=== PATIENT | female | born 1990 | race Caucasian/White ===

== ENCOUNTER 2016-12-16 12:01 | Emergency (ER) | payer BC ==
[2016-12-16 12:07] VITALS: TEMP 97.9
[2016-12-16] MEDS ORDERED: ONDANSETRON 4 MG/2 ML VIAL IVP ONE (12:14)
[2016-12-16] MEDS ORDERED: NS 1,000 ML IV ONE (12:14)
[2016-12-16] MEDS ORDERED: DIAZEPAM 10 MG/2 ML SYR IVP ONE (12:27)
[2016-12-16] MEDS ORDERED: FAMOTIDINE 20 MG/2 ML SDV IVP ONE (12:29)
[2016-12-16] MEDS ORDERED: HYOSCYAMINE SULFATE 0.125 MG TAB PO ONE (12:29)
--- NOTE | 2016-12-16 12:31 | EDPHY ---
H & P Stated Complaint: Had ECt yesterday;started n/v/d afterwards Source: Patient Exam Limitations: No limitations - Personal History LMP (Females 10-55): Extended Cycle BCP/Inj Current Tetanus Diphtheria and Acellular Pertussis (TDAP): Yes Tetanus Vaccine Date: 2010 - Medical/Surgical History Hx Asthma: No Hx Chronic Respiratory Disease: No Hx Diabetes: No Hx Cardiac Disease: No Hx Renal Disease: No Hx Cirrhosis: No Hx Alcoholism: No Hx HIV/AIDS: No Hx Splenectomy or Spleen Trauma: No Other PMH: PMHx: Depression and anxiety, migraines, overdose x2, cutting Hx as adolescent, ECT treatments. PSHx: back procedure 2014 - Family History Significant Family History: No pertinent family hx - Social History Smoking Status: Never smoked Alcohol Use: Rarely Drug Use: None Time Seen by Provider: 12/16/16 12:27 HPI/ROS: HPI: 26-year-old female presents to emergency department with chief concern nausea, vomiting, diarrhea that onset suddenly yesterday at 1:00 p.m., an hour after her ECT treatment. Reports onset of chills, myalgias, nausea, vomiting, and diarrhea. Last emesis 1 hour ago. Last diarrhea this morning. Denies fever, URI symptoms, shortness of breath, chest pain, focal abdominal pain, urinary symptoms, back or flank pain, rash. No recent travel. Did not eat out prior to onset of symptoms. No sick household contacts. No aggravating or alleviating factors. ROS:10 point review of systems is negative other than as stated in HPI (Pina Nieves) - Physical Exam Exam: Vital signs stable, reviewed by me General: Awake, alert, calm, cooperative. No acute distress. Head: Normalocephalic. Atraumatic. EENT: PERRLA. EOMI. No pallor or injection. Anicteric. No nystagmus. No injection. TMs intact bilaterally with normal landmarks. No rhinnorhea, nasal passages clear. Oropharynx without redness, exudates, or lesions. Tonsils 2+ bilaterally, no exudates. Neck: Supple, nontender. No lymphadenopathy. Full range of motion. No meningismus. Respiratory: Breathing unlabored. Breath sounds equal bilaterally and clear to auscultation. No adventitious sounds. CV: Chest nontender, atraumatic. Heart rate regular. No murmur, distal pulses 2+ bilaterally. Brisk cap refill all extremities. GI: Abdomen soft, generalized mild discomfort to deep palpation. No guarding. No focal tenderness. No rebound. Bowel sounds normoactive and positive x4 quadrants. : No CVA or flank tenderness. Neuro: Alert. Oriented x 3. Speech clear. Nonfocal cranial nerves throughout. Sensation intact all extremities. Skin: Skin warm, dry, intact. No rashes, abrasions, or lacerations. Skin turgor normal. Extremities: Full range of motion in all 4 extremities. Strength 5+ all extremities. (Pina Nieves K) Constitutional: Initial Vital Signs Temperature (C) 36.6 C 12/16/16 12:04 Heart Rate 92 12/16/16 12:04 Respiratory Rate 18 12/16/16 12:04 Blood Pressure 98/57 L 12/16/16 12:04 O2 Sat (%) 97 12/16/16 12:04 O2 Delivery Mode Room Air Allergies/Adverse Reactions: iodine Allergy (Severe, Verified 12/16/16 12:04) Anaphylaxis shellfish derived Allergy (Severe, Verified 12/16/16 12:04) Anaphylaxis lorazepam Allergy (Verified 12/16/16 12:04) Home Medications: Medication Instructions Recorded clonazePAM [KlonOPIN] 1 mg PO BID #40 tab 03/13/15 Bc Implant 03/20/16 Eszopiclone [Lunesta] 5 mg PO 12/16/16 Ondansetron Odt [Zofran Odt 4 mg 4 mg PO Q4 PRN #6 tab 12/16/16 (*)] Venlafaxine Xr [Effexor Xr 37.5MG 37.5 mg PO 12/16/16 (*)] Medical Decision Making ED Course/Re-evaluation: 1235:26-year-old female presents to ED with nausea, vomiting, diarrhea in the setting of chills and myalgias that onset suddenly yesterday, just 1 hour after ECT treatment. Symptoms are consistent with a viral gastroenteritis. She has no focal abdominal pain and no guarding. She has no urinary symptoms, no back or flank pain. Will give her 1 L normal saline, 4 mg IV Zofran, 0.25 hyoscyamine , IV Pepcid, IV Valium, and re-evaluate. 1450: Labs are unremarkable. Nausea resolved, abdominal cramping is significantly improved at 2/10. Patient tolerating p.o. without difficulty. Tolerated road test without difficulty. Will discharge her for follow up with primary care tomorrow for recheck without fail. She and her father verbalized understanding. Discharge vitals are stable. (Pina Nieves) I did not see this patient while she was in the emergency department. However her care was discussed with the nurse practitioner while the patient was in the department. I agree with treatment plan and management (Edis Alva) Differential Diagnosis: Differential diagnosis includes but is not limited to viral gastroenteritis, food poisoning, food sensitivity or intolerance, colitis, ECT treatment adverse reaction, metabolic derangement, drug side effect (Pina Nieves) - Data Points Laboratory Results: Laboratory Results 12/16/16 12:30 12/16/16 12:30 Medications Given: Discontinued Medications Diazepam (Valium Injection) 2.5 mg IVP EDNOW ONE Stop: 12/16/16 12:28 Last Admin: 12/16/16 12:48 Dose: 2.5 mg Famotidine (Pepcid) 20 mg IVP EDNOW ONE Stop: 12/16/16 12:30 Last Admin: 12/16/16 12:48 Dose: 20 mg Hyoscyamine Sulfate (Levsin, Hyomax-Sl) 0.25 mg PO EDNOW ONE Stop: 12/16/16 12:30 Last Admin: 12/16/16 13:00 Dose: 0.25 mg Sodium Chloride (Ns) 1,000 mls @ 0 mls/hr IV ONCE ONE PRN Reason: Wide Open Stop: 12/16/16 12:15 Last Admin: 12/16/16 12:38 Dose: 1,000 mls Ondansetron HCl (Zofran) 4 mg IVP EDNOW ONE Stop: 12/16/16 12:15 Last Admin: 12/16/16 12:38 Dose: 4 mg Departure - Departure Disposition: Home, Routine, Self-Care Clinical Impression: Nausea & vomiting, Diarrhea Condition: Good Instructions: Gastroenteritis (ED) Additional Instructions: Plan: Go home and rest. Clear liquids if nauseated, advance to bland diet as tolerated.(broth, bananas, rice, applesauce, and toast.) Avoid dairy, caffeine, fatty foods, and raw vegetables for now. May use ondansetron (Zofran) antinausea medicine if needed. Might try using Psyllium husk (Metamucil) 2-3 times daily to increase bulk. Recheck if any bloody vomit, dark or bloody stools. Recheck right away if worsening abdominal pain. Good handwashing to prevent spread of infection. Follow up with her primary care provider tomorrow for recheck without fail-- When you call to schedule appointment, please let the office know you are an " ER follow up" appointment" Referrals: Merry Ordonez PA [Primary Care Provider] - As per Instructions Prescriptions: Ondansetron Odt [Zofran Odt 4 mg (*)] 4 mg PO Q4 PRN #6 tab PRN Reason: nausea
[2016-12-16 12:40] LABS: % IMMATURE GRANULYOCYTES 0.3 % (0.0-1.1); ABSOLUTE IMMATURE GRANULOCYTES 0.02 10^3/uL (0.00-0.10); ADD DIFF? NO; ADD MORPH? NO; ADD SCAN? NO; ATYPICAL LYMPHOCYTE FLAG 10 (0-99); FRAGMENT RBC FLAG 0 (0-99); HEMOGLOBIN 15.1 g/dL (12.6-16.3); LEFT SHIFT FLG 0 (0-99); LIPEMIA HEMOLYSIS FLAG 90 (0-99); MEAN CELL HEMOGLOBIN 30.9 pg (27.9-34.1); MEAN CELL HEMOGLOBIN CONCENTR. 36.8 g/dL (32.4-36.7); MEAN PLATELET VOLUME 10.5 fL (8.7-11.7); PLATELET CLUMPS FLAG 0 (0-99); PLATELET COUNT 211 10^3/uL (150-400); RED BLOOD CELL COUNT 4.88 10^6/uL (4.18-5.33); RED CELL DISTRIBUTION WIDTH 11.9 % (11.5-15.2)
[2016-12-16 12:50] VITALS: RESP 16
[2016-12-16 12:56] LABS: ANION GAP 15 mEq/L (8-16); CALCIUM 10.3 mg/dL (8.5-10.4); CARBON DIOXIDE 24 mEq/l (22-31); CHLORIDE 105 mEq/L (97-110); CREATININE 0.7 mg/dL (0.6-1.0); GLOMERULAR FILTRATION RATE > 60; GLUCOSE 105 mg/dL (70-100); MAGNESIUM 1.8 mg/dL (1.6-2.3); POTASSIUM 4.1 mEq/L (3.5-5.2); SODIUM 144 mEq/L (134-144)
[2016-12-16 14:50] VITALS: BP 124/77; PULSE 92; O2SAT 97
== END 2016-12-16 15:09 | disposition home or self-care (01) ==
DX: R11.2 Nausea with vomiting, unspecified (principal); R19.7 Diarrhea, unspecified
CPT/HCPCS: 96374; J2405

== ENCOUNTER 2017-01-12 18:46 | Emergency (ER) | payer BC ==
[2017-01-12] MEDS ORDERED: NS 1,000 ML IV ONE (19:16)
[2017-01-12] MEDS ORDERED: ONDANSETRON 4 MG/2 ML VIAL IVP ONE (19:16)
--- NOTE | 2017-01-12 19:16 | EDPHY ---
H & P Time Seen by Provider: 01/12/17 19:04 HPI/ROS: CHIEF COMPLAINT: Vomiting and diarrhea HISTORY OF PRESENT ILLNESS: Patient is a 26-year-old female who presents emergency department with acute onset nausea, vomiting and diarrhea since yesterday morning. The patient states she was doing fine previous to the onset. She has been having episodes "nonstop." She states she was diagnosed with gastroenteritis a few weeks ago but this is more powerful. She has previously been in the emergency department after ECT for nausea and vomiting. She denies any fevers or chills. No recent travel. Patient does not identify this as related to food intake. REVIEW OF SYSTEMS: My complete review of systems is negative except as mentioned in the HPI. Past Medical/Surgical History: Includes depression, anxiety, migraines, overdose Past surgical history: Includes back procedure for blood clot Social history: The patient does not smoke use alcohol. Smoking Status: Never smoked Physical Exam: Vitals noted. Afebrile GENERAL: Well-appearing, in no acute distress, alert. HEENT: Eyes normal to inspection, normal pharynx, no signs of dehydration. NECK: No thyromegaly, no lymphadenopathy, supple. RESPIRATORY: Clear to auscultation bilaterally, no rales, rhonchi or wheezing. CVS: Regular rate and rhythm, no rubs, murmurs, or gallops. ABDOMEN: Soft, diffuse mild tenderness to palpation with no rebound or guarding , nondistended, no organomegaly. BACK: Normal to inspection, no CVA tenderness. SKIN: Normal color, no rash, warm, dry. No pallor. EXTREMITIES: No pedal edema, no calf tenderness, no joint swelling. NEURO/PSYCH: Alert and oriented, normal mood and affect Constitutional: Initial Vital Signs Temperature (C) 36.8 C 01/12/17 18:51 Heart Rate 97 01/12/17 18:51 Respiratory Rate 16 01/12/17 18:51 Blood Pressure 124/86 H 01/12/17 18:51 O2 Sat (%) 99 01/12/17 18:51 O2 Delivery Mode Room Air Allergies/Adverse Reactions: iodine Allergy (Severe, Verified 12/16/16 12:04) Anaphylaxis shellfish derived Allergy (Severe, Verified 12/16/16 12:04) Anaphylaxis lorazepam Allergy (Verified 12/16/16 12:04) Home Medications: Medication Instructions Recorded clonazePAM [KlonOPIN] 1 mg PO BID #40 tab 03/13/15 Bc Implant 03/20/16 Eszopiclone [Lunesta] 5 mg PO 12/16/16 Ondansetron Odt [Zofran Odt 4 mg 4 mg PO Q4 PRN #6 tab 12/16/16 (*)] Venlafaxine Xr [Effexor Xr 37.5MG 37.5 mg PO 12/16/16 (*)] Prochlorperazine Maleate 10 mg PO TID PRN #7 tab 01/12/17 [Compazine 10mg (*)] oxyCODONE/APAP 5/325 [Percocet 1 - 2 tab PO Q4PRN PRN #11 tab 01/12/17 5/325 (*)] Medical Decision Making ED Course/Re-evaluation: In the emergency department I discussed the plan with the patient. I answered all her questions. IV was placed. Patient was given a L of normal saline. She is given Zofran 4 mg IV. I reviewed the patient's laboratory studies. Her CBC was unremarkable. Her chemistry and renal function were normal. She had mildly elevated calcium. was negative. Patient was given Benadryl 12.5 mg IV. She is given Toradol 30 mg IV. I discussed the results with the patient. Patient stated her nausea had improved. She still has diffuse abdominal discomfort. On repeat examination she is lying comfortably in the bed. Abdomen is soft with mild diffuse tenderness palpation. There is no rebound or guarding. I offered the patient admission for further treatment observation. However, the patient would prefer to be discharged home. I had a long discussion regarding her presentation and results. She will return if her symptoms worsen. Differential Diagnosis: My differential includes but is not limited to gastroenteritis, viral illness, obstruction, perforation, electrolyte abnormality, sugar abnormality, medication reaction - Data Points Laboratory Results: Laboratory Results 01/12/17 19:05 01/12/17 19:05 01/12/17 01/12/17 01/12/17 20:30 19:05 19:05 WBC RBC Hgb Hct MCV MCH MCHC RDW Plt Count MPV Neut % (Auto) Lymph % (Auto) [place] % (Auto) Eos % (Auto) Baso % (Auto) Nucleat RBC Rel Count Absolute Neuts (auto) Absolute Lymphs (auto) Absolute Monos (auto) Absolute Eos (auto) Absolute Basos (auto) Absolute Nucleated RBC Immature Gran % Immature Gran # Sodium 141 mEq/L mEq/L (134-144) Potassium 3.8 mEq/L mEq/L (3.5-5.2) Chloride 103 mEq/L mEq/L (97-110) Carbon Dioxide 22 mEq/l mEq/l (22-31) Anion Gap 16 mEq/L mEq/L (8-16) BUN 13 mg/dL mg/dL (7-23) Creatinine 0.7 mg/dL mg/dL (0.6-1.0) Estimated GFR > 60 Glucose 135 mg/dL H mg/dL (70-100) Calcium 10.5 mg/dL H mg/dL (8.5-10.4) Total Bilirubin 0.9 mg/dL mg/dL (0.1-1.4) Conjugated Bilirubin 0.4 mg/dL mg/dL (0.0-0.5) Unconjugated Bilirubin 0.5 mg/dL mg/dL (0.0-1.1) AST 28 IU/L IU/L (14-46) ALT 27 IU/L IU/L (9-52) Alkaline Phosphatase 73 IU/L IU/L (38-126) Total Protein 9.1 g/dL H g/dL (6.3-8.2) Albumin 5.6 g/dL H g/dL (3.5-5.0) Lipase 104.0 IU/L IU/L (23-300) Beta HCG, Qual NEGATIVE Urine Color YELLOW Urine Appearance HAZY Urine pH 6.0 (5.0-7.5) Ur Specific [place] 1.016 (1.002-1.030) Urine Protein NEGATIVE (NEGATIVE) Urine Ketones 1+ H (NEGATIVE) Urine Blood NEGATIVE (NEGATIVE) Urine Nitrate NEGATIVE (NEGATIVE) Urine Bilirubin NEGATIVE (NEGATIVE) Urine Urobilinogen NEGATIVE EU EU (0.2-1.0) Ur Leukocyte Esterase NEGATIVE (NEGATIVE) Urine Glucose NEGATIVE (NEGATIVE) 01/12/17 19:05 WBC 6.99 10^3/uL 10^3/uL (3.80-9.50) RBC 5.33 10^6/uL 10^6/uL (4.18-5.33) Hgb 16.4 g/dL H g/dL (12.6-16.3) Hct 43.8 % % (38.0-47.0) MCV 82.2 fL fL (81.5-99.8) MCH 30.8 pg pg (27.9-34.1) MCHC 37.4 g/dL H g/dL (32.4-36.7) RDW 11.4 % L % (11.5-15.2) Plt Count 268 10^3/uL 10^3/uL (150-400) MPV 10.9 fL fL (8.7-11.7) Neut % (Auto) 62.7 % % (39.3-74.2) Lymph % (Auto) 31.3 % % (15.0-45.0) [place] % (Auto) 5.6 % % (4.5-13.0) Eos % (Auto) 0.0 % L % (0.6-7.6) Baso % (Auto) 0.3 % % (0.3-1.7) Nucleat RBC Rel Count 0.0 % % (0.0-0.2) Absolute Neuts (auto) 4.38 10^3/uL 10^3/uL (1.70-6.50) Absolute Lymphs (auto) 2.19 10^3/uL 10^3/uL (1.00-3.00) Absolute Monos (auto) 0.39 10^3/uL 10^3/uL (0.30-0.80) Absolute Eos (auto) 0.00 10^3/uL L 10^3/uL (0.03-0.40) Absolute Basos (auto) 0.02 10^3/uL 10^3/uL (0.02-0.10) Absolute Nucleated RBC 0.00 10^3/uL 10^3/uL (0-0.01) Immature Gran % 0.1 % % (0.0-1.1) Immature Gran # 0.01 10^3/uL 10^3/uL (0.00-0.10) Sodium Potassium Chloride Carbon Dioxide Anion Gap BUN Creatinine Estimated GFR Glucose Calcium Total Bilirubin Conjugated Bilirubin Unconjugated Bilirubin AST ALT Alkaline Phosphatase Total Protein Albumin Lipase Beta HCG, Qual Urine Color Urine Appearance Urine pH Ur Specific [place] Urine Protein Urine Ketones Urine Blood Urine Nitrate Urine Bilirubin Urine Urobilinogen Ur Leukocyte Esterase Urine Glucose Medications Given: Discontinued Medications Diphenhydramine HCl (Benadryl Injection) 12.5 mg IVP EDNOW ONE Stop: 01/12/17 20:08 Last Admin: 01/12/17 20:19 Dose: 12.5 mg Sodium Chloride (Ns) 1,000 mls @ 0 mls/hr IV ONCE ONE PRN Reason: Wide Open Stop: 01/12/17 19:17 Last Admin: 01/12/17 19:25 Dose: 1,000 mls Ketorolac Tromethamine (Toradol) 30 mg IVP EDNOW ONE Stop: 01/12/17 20:08 Last Admin: 01/12/17 20:20 Dose: 30 mg Ondansetron HCl (Zofran) 4 mg IVP EDNOW ONE Stop: 01/12/17 19:17 Last Admin: 01/12/17 19:25 Dose: 4 mg Oxycodone/Acetaminophen (Percocet 5/325mg Prepack#4) 1 btl TAKEHOME EDNOW ONE Stop: 01/12/17 21:29 Last Admin: 01/12/17 21:28 Dose: 1 btl Departure - Departure Disposition: Home, Routine, Self-Care Clinical Impression: Abdominal pain Qualifiers: Abdominal location: generalized Qualified Code(s): R10.84 - Generalized abdominal pain Vomiting Qualifiers: Vomiting type: unspecified Vomiting Intractability: unspecified Nausea presence : with nausea Qualified Code(s): R11.2 - Nausea with vomiting, unspecified Diarrhea Qualifiers: Diarrhea type: unspecified type Qualified Code(s): R19.7 - Diarrhea, unspecified Condition: Good Instructions: Acute Abdominal Pain (ED), Acute Nausea and Vomiting (ED), Acute Low Back Pain (ED) Additional Instructions: Return with increasing back pain, fever, weakness, numbness, incontinence of urine or stool, worsening abdominal pain, repeated vomiting or any other concerns. Referrals: Merry Ordonez PA [Primary Care Provider] - 1-2 days without fail Prescriptions: oxyCODONE/APAP 5/325 [Percocet 5/325 (*)] 1 - 2 tab PO Q4PRN PRN #11 tab PRN Reason: For Moderate To Severe Pain Prochlorperazine Maleate [Compazine 10mg (*)] 10 mg PO TID PRN #7 tab PRN Reason: Nausea/Vomiting, Use 2nd
[2017-01-12 19:21] LABS: % IMMATURE GRANULYOCYTES 0.1 % (0.0-1.1); ABSOLUTE IMMATURE GRANULOCYTES 0.01 10^3/uL (0.00-0.10); ADD DIFF? NO; ADD MORPH? NO; ADD SCAN? NO; ATYPICAL LYMPHOCYTE FLAG 20 (0-99); FRAGMENT RBC FLAG 0 (0-99); HEMATOCRIT 43.8 % (38.0-47.0); HEMOGLOBIN 16.4 g/dL (12.6-16.3); LEFT SHIFT FLG 0 (0-99); LIPEMIA HEMOLYSIS FLAG 90 (0-99); MEAN CELL HEMOGLOBIN 30.8 pg (27.9-34.1); MEAN CELL HEMOGLOBIN CONCENTR. 37.4 g/dL (32.4-36.7); MEAN CELL VOLUME 82.2 fL (81.5-99.8); MEAN PLATELET VOLUME 10.9 fL (8.7-11.7); PLATELET CLUMPS FLAG 0 (0-99); PLATELET COUNT 268 10^3/uL (150-400); RED BLOOD CELL COUNT 5.33 10^6/uL (4.18-5.33); RED CELL DISTRIBUTION WIDTH 11.4 % (11.5-15.2)
[2017-01-12 19:32] LABS: ALANINE AMINOTRANSFERASE 27 IU/L (9-52); ALBUMIN 5.6 g/dL (3.5-5.0); ALKALINE PHOSPHATASE 73 IU/L (38-126); ANION GAP 16 mEq/L (8-16); ASPARTATE AMINOTRANSFERASE 28 IU/L (14-46); BILIRUBIN,TOTAL 0.9 mg/dL (0.1-1.4); BILIRUBIN-CONJUGATED 0.4 mg/dL (0.0-0.5); BILIRUBIN-UNCONJUGATED 0.5 mg/dL (0.0-1.1); CALCIUM 10.5 mg/dL (8.5-10.4); CARBON DIOXIDE 22 mEq/l (22-31); CHLORIDE 103 mEq/L (97-110); CREATININE 0.7 mg/dL (0.6-1.0); GLOMERULAR FILTRATION RATE > 60; GLUCOSE 135 mg/dL (70-100); POTASSIUM 3.8 mEq/L (3.5-5.2); SODIUM 141 mEq/L (134-144); TOTAL PROTEIN 9.1 g/dL (6.3-8.2)
[2017-01-12] MEDS ORDERED: KETOROLAC 30 MG/1 ML SDV IVP ONE (20:07)
[2017-01-12 20:48] LABS: COLOR YELLOW; LEUKOCYTE ESTERASE,URINE NEGATIVE (NEGATIVE); NITRITE,URINE NEGATIVE (NEGATIVE)
[2017-01-12] MEDS ORDERED: OXYCODONE/APAP 5/325MG PREPACK#4 BTL TAKEHOME ONE ×2 (21:25→21:28)
[2017-01-12 21:56] VITALS: BP 109/74; PULSE 74; RESP 15; TEMP 98.1; O2SAT 98
== END 2017-01-12 21:56 | disposition home or self-care (01) ==
DX: R11.2 Nausea with vomiting, unspecified (principal); R10.84 Generalized abdominal pain; R19.7 Diarrhea, unspecified
CPT/HCPCS: 96374; J1200; J1885; J2405

== ENCOUNTER 2017-01-27 08:13 | Emergency (ER) | payer BC ==
[2017-01-27 08:22] VITALS: TEMP 98.4
--- NOTE | 2017-01-27 08:23 | EDPHY ---
H & P Time Seen by Provider: 01/27/17 08:22 HPI/ROS: CHIEF COMPLAINT: Nausea vomiting diarrhea HISTORY OF PRESENT ILLNESS: Patient is had similar symptoms after ECT but usually it happens within a few hours of her treatment. She had ECT last Thursday and her symptoms did not start until 3 days ago. She describes multiple episodes of nausea vomiting and diarrhea not helped by Zofran and Imodium. Symptoms are severe and today or vomiting was associated with some streaks of bright red blood. No melena. Symptoms associated with decreased urine output and worse with trying to eat or drink anything. No recent foreign travel. REVIEW OF SYSTEMS: Eye: no change in vision ENT: no sore throat Cardiac: no chest pain or syncope Pulmonary: no cough or SOB Abdomen: HPI Musculoskeletal: no back pain Skin: no rash Neuro: no headache Constitutional: no fever : No hematuria or dysuria, no vaginal symptoms. Decreased urine output. A comprehensive 10 point review of systems is otherwise negative aside from elements mentioned in the history of present illness. PAST MEDICAL HISTORY: History and physical dated 02/25/2014 personally reviewed , includes ACL repair, depression with previous ECT treatment, anxiety and depression. Migraine headaches and sleep disorder. Social history: No alcohol or tobacco General Appearance: Alert and conversant, cooperative. Eyes: No scleral icterus. ENT, Mouth: Dry mucous membranes Respiratory: Normal respiratory effort, breath sounds equal, lungs are clear to auscultation. Cardiovascular: Regular rate and rhythm. tachycardic Gastrointestinal: Abdomen is soft and non tender. Neurological: Alert and oriented x3. Normally conversant. Face symmetric, normal movement and sensation in all extremities. Skin: Warm and dry, no rashes. Musculoskeletal: No peripheral edema and no joint swelling. Psychiatric: Mildly anxious. Emergency Department course/MDM: Patient has a history of hallucinations with lorazepam but has tolerated diazepam in the past. Plan for haloperidol 2.5 mg IV, diphenhydramine 25 mg IV, diazepam 5 mg IV. Normal saline 2 L for nausea vomiting and dehydration with heart rate 130s. 1042: Results discussed, not vomiting, labs reviewed. Imodium 4 mg orally. 1140: Still has nausea and feels dizzy when she opens her eyes. 5 mg IV Valium , 50 mg oral meclizine. If not improving in a hour will plan for admission for symptom control. 1240: Still symptomatic, discussed and consented for admission for continued treatment. While awaiting inpatient bed, patient finally began to feel better, felt well enough to go home, requesting discharge. I think that is reasonable as her reason for admission was for continued need for IV medications to control symptoms. Although noted mildly tachycardic she has no vomiting or diarrhea at this time and I think it's reasonable to let her try to manage as an outpatient if she wants to, will return if worse. Smoking Status: Never smoked Constitutional: Initial Vital Signs Temperature (C) 36.9 C 01/27/17 08:19 Heart Rate 136 H 01/27/17 08:19 Respiratory Rate 22 H 01/27/17 08:19 Blood Pressure 107/84 H 01/27/17 08:19 O2 Sat (%) 98 01/27/17 08:19 O2 Delivery Mode Room Air Allergies/Adverse Reactions: iodine Allergy (Severe, Verified 12/16/16 12:04) Anaphylaxis shellfish derived Allergy (Severe, Verified 12/16/16 12:04) Anaphylaxis lorazepam Allergy (Verified 12/16/16 12:04) Home Medications: Medication Instructions Recorded Eszopiclone [Lunesta] 3 mg PO HS 01/27/17 Venlafaxine Xr [Effexor Xr] 150 mg PO DAILY 01/27/17 clonazePAM [klonoPIN (*)] 1 mg PO BID 01/27/17 Medical Decision Making Differential Diagnosis: Differential for nausea and vomiting considered including but not limited to bowel obstruction, gastroenteritis, food related, viral. I think that her bright red blood with vomiting today most likely represents Paloma-Mendieta tear and not duodenal or gastric upper GI bleed. Consult/Admit Bed Type: [address] - Data Points Laboratory Results: Laboratory Results 01/27/17 08:35 01/27/17 09:32 01/27/17 01/27/17 01/27/17 09:32 09:32 08:35 WBC 8.85 10^3/uL 10^3/uL (3.80-9.50) RBC 5.55 10^6/uL H 10^6/uL (4.18-5.33) Hgb 16.9 g/dL H g/dL (12.6-16.3) Hct 45.5 % % (38.0-47.0) MCV 82.0 fL fL (81.5-99.8) MCH 30.5 pg pg (27.9-34.1) MCHC 37.1 g/dL H g/dL (32.4-36.7) RDW 11.9 % % (11.5-15.2) Plt Count 265 10^3/uL 10^3/uL (150-400) MPV 11.0 fL fL (8.7-11.7) Neut % (Auto) 68.7 % % (39.3-74.2) Lymph % (Auto) 22.3 % % (15.0-45.0) [place] % (Auto) 8.0 % % (4.5-13.0) Eos % (Auto) 0.2 % L % (0.6-7.6) Baso % (Auto) 0.5 % % (0.3-1.7) Nucleat RBC Rel Count 0.0 % % (0.0-0.2) Absolute Neuts (auto) 6.08 10^3/uL 10^3/uL (1.70-6.50) Absolute Lymphs (auto) 1.97 10^3/uL 10^3/uL (1.00-3.00) Absolute Monos (auto) 0.71 10^3/uL 10^3/uL (0.30-0.80) Absolute Eos (auto) 0.02 10^3/uL L 10^3/uL (0.03-0.40) Absolute Basos (auto) 0.04 10^3/uL 10^3/uL (0.02-0.10) Absolute Nucleated RBC 0.00 10^3/uL 10^3/uL (0-0.01) Immature Gran % 0.3 % % (0.0-1.1) Immature Gran # 0.03 10^3/uL 10^3/uL (0.00-0.10) Sodium 139 mEq/L mEq/L (134-144) Potassium 3.5 mEq/L mEq/L (3.5-5.2) Chloride 107 mEq/L mEq/L (97-110) Carbon Dioxide 23 mEq/l mEq/l (22-31) Anion Gap 9 mEq/L mEq/L (8-16) BUN 13 mg/dL mg/dL (7-23) Creatinine 0.7 mg/dL mg/dL (0.6-1.0) Estimated GFR > 60 Glucose 87 mg/dL mg/dL (70-100) Calcium 8.2 mg/dL L mg/dL (8.5-10.4) Beta HCG, Qual NEGATIVE Medications Given: Discontinued Medications Diazepam (Valium Injection) 5 mg IVP EDNOW ONE Stop: 01/27/17 08:32 Last Admin: 01/27/17 08:58 Dose: 5 mg Diazepam (Valium Injection) 5 mg IVP EDNOW ONE Stop: 01/27/17 11:43 Last Admin: 01/27/17 11:49 Dose: 5 mg Diazepam (Valium Injection) 5 mg IVP EDNOW ONE Stop: 01/27/17 11:42 Last Admin: 01/27/17 11:43 Dose: Not Given Diphenhydramine HCl (Benadryl Injection) 25 mg IVP EDNOW ONE Stop: 01/27/17 08:32 Last Admin: 01/27/17 08:59 Dose: 25 mg Haloperidol Lactate (Haldol Injection) 2.5 mg IV EDNOW ONE Stop: 01/27/17 08:31 Last Admin: 01/27/17 08:57 Dose: 2.5 mg Sodium Chloride (Ns) 1,000 mls @ 0 mls/hr IV ONCE ONE PRN Reason: Wide Open Stop: 01/27/17 08:31 Last Admin: 01/27/17 08:50 Dose: 1,000 mls Sodium Chloride (Ns) 1,000 mls @ 0 mls/hr IV ONCE ONE PRN Reason: Wide Open Stop: 01/27/17 08:31 Last Admin: 01/27/17 09:12 Dose: 1,000 mls Sodium Chloride (Ns) 1,000 mls @ 0 mls/hr IV ONCE ONE PRN Reason: Wide Open Stop: 01/27/17 11:06 Last Admin: 01/27/17 11:15 Dose: 1,000 mls Loperamide HCl (Imodium) 2 mg PO EDNOW ONE Stop: 01/27/17 10:38 Last Admin: 01/27/17 10:53 Dose: Not Given Loperamide HCl (Imodium) 4 mg PO EDNOW ONE Stop: 01/27/17 10:41 Last Admin: 01/27/17 10:53 Dose: 4 mg Meclizine HCl (Meclizine Hcl) 25 mg PO EDNOW ONE Stop: 01/27/17 11:43 Last Admin: 01/27/17 11:49 Dose: 25 mg Ondansetron HCl (Zofran) 4 mg IVP EDNOW ONE Stop: 01/27/17 10:54 Last Admin: 01/27/17 10:55 Dose: 4 mg Departure - Departure Disposition: Home, Routine, Self-Care Clinical Impression: Dehydration Nausea & vomiting Qualifiers: Vomiting type: unspecified Vomiting Intractability: non-intractable Qualified Code(s): R11.2 - Nausea with vomiting, unspecified Condition: Good
[2017-01-27] MEDS ORDERED: NS 1,000 ML IV ONE ×3 (08:30→11:05)
[2017-01-27] MEDS ORDERED: HALOPERIDOL LACT 5 MG/ML INJ IV ONE (08:30)
[2017-01-27] MEDS ORDERED: DIAZEPAM 10 MG/2 ML SYR IVP ONE ×3 (08:31→11:42)
[2017-01-27 08:41] LABS: % IMMATURE GRANULYOCYTES 0.3 % (0.0-1.1); ABSOLUTE IMMATURE GRANULOCYTES 0.03 10^3/uL (0.00-0.10); ADD DIFF? NO; ADD MORPH? NO; ADD SCAN? NO; ATYPICAL LYMPHOCYTE FLAG 20 (0-99); FRAGMENT RBC FLAG 0 (0-99); HEMATOCRIT 45.5 % (38.0-47.0); HEMOGLOBIN 16.9 g/dL (12.6-16.3); LEFT SHIFT FLG 10 (0-99); LIPEMIA HEMOLYSIS FLAG 90 (0-99); MEAN CELL HEMOGLOBIN 30.5 pg (27.9-34.1); MEAN CELL HEMOGLOBIN CONCENTR. 37.1 g/dL (32.4-36.7); PLATELET CLUMPS FLAG 60 (0-99); PLATELET COUNT 265 10^3/uL (150-400); RED BLOOD CELL COUNT 5.55 10^6/uL (4.18-5.33); RED CELL DISTRIBUTION WIDTH 11.9 % (11.5-15.2)
[2017-01-27 10:14] LABS: ANION GAP 9 mEq/L (8-16); CALCIUM 8.2 mg/dL (8.5-10.4); CARBON DIOXIDE 23 mEq/l (22-31); CHLORIDE 107 mEq/L (97-110); CREATININE 0.7 mg/dL (0.6-1.0); GLOMERULAR FILTRATION RATE > 60; GLUCOSE 87 mg/dL (70-100); POTASSIUM 3.5 mEq/L (3.5-5.2); SODIUM 139 mEq/L (134-144)
[2017-01-27] MEDS ORDERED: LOPERAMIDE HCL 2 MG CAP PO ONE ×2 (10:37→10:40)
[2017-01-27] MEDS ORDERED: ONDANSETRON 4 MG/2 ML VIAL ONE (10:49)
[2017-01-27] MEDS ORDERED: ONDANSETRON 4 MG/2 ML VIAL IVP ONE (10:53)
[2017-01-27] MEDS ORDERED: MECLIZINE HCL 25 MG TAB PO ONE (11:42)
[2017-01-27 14:03] VITALS: BP 101/61; PULSE 116; RESP 16; O2SAT 94
== END 2017-01-27 13:59 | disposition home or self-care (01) ==
LOC: UNDOADMOB 12:38
DX: R11.2 Nausea with vomiting, unspecified (principal); E86.0 Dehydration
CPT/HCPCS: 96374; J1200; J2405